=== PATIENT | male | born 1985 | race Caucasian/White ===

== ENCOUNTER 2017-07-11 07:51 | Emergency (ER) | payer BC ==
[2017-07-11] MEDS: IBUPROFEN 800 MG TAB PO (09:19)
== END 2017-07-11 10:15 | disposition home or self-care (01) ==
LOC: FTE 07:51
DX: R07.89 Other chest pain (principal); F17.210 Nicotine dependence, cigarettes, uncomplicated
CPT/HCPCS: 71045; 99284-25

== ENCOUNTER 2018-02-09 09:51 | Emergency (ER) | payer BC | END 2018-02-09 11:00 | disposition home or self-care (01) | LOC: FTE 09:51 | DX: J02.0 Streptococcal pharyngitis (principal) | CPT/HCPCS: 99283 ==

== ENCOUNTER 2018-03-29 20:46 | Emergency (ER) | payer SELFPAY, BC ==
[2018-03-30 02:47] LABS: ADD MAN DIFF? NO
[2018-03-30 02:54] LABS: BASOPHILS % 0.5 % (0.0-2.0); EOSINOPHILS # 0.1 10^3/ul (0.0-0.5); EOSINOPHILS % 1.9 % (0.0-7.0); HEMATOCRIT 40.4 % (42.0-52.0); HEMOGLOBIN 13.9 g/dl (14.0-18.0); LYMPHOCYTES # 2.7 10^3/ul (0.8-2.9); LYMPHOCYTES % 46.8 % (15.0-51.0); MEAN CORPUSCULAR HEMOGLOBIN 29.9 pg (29.0-33.0); MEAN CORPUSCULAR HGB CONC 34.4 g/dl (32.0-37.0); MEAN CORPUSCULAR VOLUME 86.9 fl (82.0-101.0); MONOCYTE # 0.4 10^3/ul (0.3-0.9); MONOCYTES % 7.4 % (0.0-11.0); NEUTROPHIL # 2.4 10^3/ul (1.6-7.5); PLATELET COUNT 176 10^3/UL (140-415); RED BLOOD COUNT 4.65 10^6/ul (4.70-6.10); RED CELL DISTRIBUTION WIDTH 12.5 % (11.5-14.5)
[2018-03-30 02:54] LABS: WHITE BLOOD COUNT 5.7 10^3/ul (4.8-10.8)
[2018-03-30 03:00] LABS: ANION GAP 10 (5-13); BLOOD UREA NITROGEN 17 mg/dl (7-20); CALCIUM 8.7 mg/dl (8.4-10.2); CARBON DIOXIDE 26 mmol/L (21-31); CHLORIDE 106 mmol/L (97-110); CREATININE 0.83 mg/dl (0.61-1.24); Estimated GFR > 60 mL/min (>60); GLUCOSE 99 mg/dl (70-220); POTASSIUM 3.8 mmol/L (3.5-5.1); SODIUM 142 mmol/L (135-144)
[2018-03-30 03:10] LABS: AMPHETAMINE/METHAMPHETAMINE Negative (NEGATIVE); BARBITURATES Negative (NEGATIVE); BENZODIAZEPINES Negative (NEGATIVE); CANNABINOIDS Negative (NEGATIVE); COCAINE Negative (NEGATIVE); OPIATES Negative (NEGATIVE)
[2018-03-30 03:18] LABS: TROPONIN-I < 0.012 ng/ml (0.000-0.120)
== END 2018-03-30 06:11 | disposition home or self-care (01) ==
LOC: E/R 20:46
DX: R07.89 Other chest pain (principal); R00.1 Bradycardia, unspecified; D64.9 Anemia, unspecified
CPT/HCPCS: 36415; 71045; 80048; 80307; 84484; 85025; 93005; 99285-25